=== PATIENT | female | born 1990 | race Caucasian/White ===

== ENCOUNTER 2019-03-29 10:31 | Emergency (ER) | payer SELFPAY ==
--- NOTE | 2019-03-29 11:50 | Emergency Department Record ---
History of Present Illness - General Chief complaint: complication Stated complaint: MISCARRYING,NEEDS RHOGAM Time Seen by Provider: 03/29/19 11:34 Source: Patient Mode of Arrival: Ambulatory Limitations: No limitations - History of Present Illness Initial comments: The patient is here due to presumed miscarriage. She is 10 weeks by da karyn and did see her OB in the OB clinic yesterday but states she was not helped. She has been bleeding for 3 days and then last night she started passing clots with cramping. The clots did stop 4 hours ago and now she is just spotting. The patient has had a miscarriage in the past and believes she is having another. She is RH neg and would like Rhogam. Complaint: Vaginal bleeding Onset/Timin -: Days(s) Location: Pelvis Radiation: None Severity: Mild Severity scale (1-10): 2 Quality: Cramping Consistency: Constant Improves with: None Worsens with: None Associated symptoms: Vaginal bleeding Vaginal bleeding: Light, Clots Number of weeks : 10 Pre-mary ann care: Followed by OB - Related Data : 3 Para: 1 Ab: 2 Home Medications Medication Instructions Recorded Confirmed Last Taken No Home Med [NO HOME MEDS] 03/29/19 03/29/19 Unknown Allergies Allergy/AdvReac Type Severity Reaction Status Date / Time No Known Drug Allergies Allergy Verified 03/29/19 11:34 Review of Systems Constitutional: Denies: Chills, Fever Eyes: Denies: Eye discharge ENT: Denies: Congestion Respiratory: Denies: Cough, Dyspnea Past Medical History - SOCIAL HISTORY Smoking Status: Former smoker - [employer] History : 3 Para: 1 A: 2 - RESPIRATORY Hx Respiratory Disorders: No - CARDIOVASCULAR Hx Cardio Disorders: No - NEURO Hx Neuro Disorders: No - GI Hx GI Disorders: No - Hx Genitourinary Disorders: No - ENDOCRINE Hx Endocrine Disorders: No - MUSCULOSKELETAL Hx Musculoskeletal Disorders: No - PSYCH Hx Psych Problems: No - HEMATOLOGY/ONCOLOGY Hx Hematology/Oncology Disorders: No Family Medical History Any Significant Family History?: No Physical Exam - General General Appearance: Alert, Oriented x3, Cooperative, No acute distress - Head Head exam: Atraumatic, Normocephalic, Normal inspection - Eye Eye exam: Normal appearance, PERRL - Neck Neck exam: Normal inspection, Full ROM. negative: Tenderness - Respiratory Respiratory exam: Normal lung sounds bilaterally. negative: Respiratory distress - Cardiovascular Cardiovascular Exam: Regular rate, Normal rhythm, Normal heart sounds - GI/Abdominal GI/Abdominal exam: Soft, Normal bowel sounds. negative: Distended, Guarding, Rebound, Rigid, Tenderness - exam: Deferred (The patient refused a pelvic exam due to the bleeding basically stopping. ) - Extremities Extremities exam: Normal inspection, Full ROM, Normal capillary refill. negative: Tenderness - Neurological Neurological exam: Alert, Normal gait. negative: Abnormal gait, Motor sensory deficit - Psychiatric Psychiatric exam: negative: Anxious Course Vital Signs 03/29/19 11:16 Temperature 98.4 F Pulse Rate [ 71 Pulse Ox Probe] Respiratory 16 Rate Blood Pressure 123/90 [Left Arm] Pulse Ox 100 - Reevaluation(s) Reevaluation #1: The patient is doing very well at this time. She denies any pain or passing any clots now and states she is only spotting. I did again offer to perform a pelvic exam but she is refusing. I also did recommend follow up in the OB clinic and the patient will comply. I did discuss the case with Carey Zamudio ([employer]) in the OB clinic in [place] and she does agree with the plan. 03/29/19 14:07 Medical Decision Making - Data Complexity MDM Data: Labs Ordered and/or Reviewed, X-Ray Ordered and/or Reviewed - Lab Data Result diagrams: 03/29/19 12:13 03/29/19 12:13 - Radiology Data Radiology results: Report reviewed (Pelvic US: Neg for IUP or pole.) Disposition Disposition: Discharge Clinical Impression: Threatened in early Disposition: Home, Self-Care Condition: (2) Stable Instructions: Threatened Miscarriage (ED) Additional Instructions: Please take Tylenol for pain and practice pelvic rest. Please follow up in the OB clinic next week for recheck an a redraw of the HCG. Return to the ER sooner for any worse bleeding, any pain or fever. Forms: Patient Portal Access Time of Disposition: 14:07 Quality - Quality Measures Quality Measures: (14-50yr) - : US Determination Quality Measure: Measure #254: US Determination of Location ICD10 Codes Entered: Yes View Details: Yes US Determination of Location: < Trans-Abdominal or Trans-Vaginal US Performed > [G8806] - : Rhogam Quality Measure: Measure #255: Rhogam for Rh-Negative Women ICD10 Codes Entered: Yes View Details: Yes Rhogam for Rh-Negative Women at Risk: < Rh-immunoglobulin (Rhogam) Ordered > [G8809] - Blood Pressure Screening View Details: Yes Does Patient Have Any of the Following: No Blood Pressure Classification: Hypertensive Reading Systolic Measurement: 123 Diastolic Measurement: 90 Screening for High Blood Pressure: < First Hypertensive BP, F/U Documented > [G8950] First Hypertensive Follow-up Interventions: Referral to alternative/primary care provider.
[2019-03-29 12:27] LABS: BASO % 0.2 % (0-6); BLOOD UREA NITROGEN 9 mg/dL (6-20); CREATININE 0.7 mg/dL (0.5-0.9); EOS % 0.6 % (0-6); EST GLOMERULAR FILTRATION RATE > 60 mL/min; GRAN % 65.7 % (47-80); HEMATOCRIT 41.5 % (35.0-47.0); HEMOGLOBIN 13.6 gm/dl (11.6-16.0); LYMPH % 28.3 % (16-45); MEAN CELL VOLUME 88.7 fl (81-97); MEAN CORPUSCULAR HEMOGLOBIN 29.1 pg (27-33); MEAN CORPUSCULAR HGB CONC 32.8 g/dl (32-36); MEAN PLATELET VOLUME 11.1 fl (7.4-10.4); MONO % 5.2 % (0-9); PLATELET COUNT 227 K/uL (130-400); RED BLOOD COUNT 4.68 M/uL (3.80-5.40); RED CELL DISTRIBUTION WIDTH 12.5 % (11.5-14.5); WHITE BLOOD COUNT W/O DIFF 8.1 K/uL (4.2-12.2)
[2019-03-29 12:30] LABS: GLUCOSE,RANDOM 85 mg/dL (74-109)
[2019-03-29] MEDS ORDERED: RHO(D) IMMUNE GLOBULIN 1,500 UNIT DISP.SYRIN IM ONE (12:59)
--- NOTE | 2019-03-31 21:41 | ULTRASOUND REPORT ---
EXAM: ULTRASOUND OB PELV W TV - EARLY (4-13wks) HISTORY: SPOTTING FOR THREE DAYS WITH INCREASED BLEEDING TODAY. TECHNIQUE: Transabdominal and transvaginal ultrasound of the uterus. COMPARISON: None. FINDINGS: TRANSABDOMINAL FINDINGS: The uterus is measuring 9.1 x 5.4 x 5.7 cm. The myometrium shows no specific lesion. There is a thick endometrium consistent with a decidual reaction. There is a small fluid collection within the endometrium measuring 9 x 9 x 10 mm that could be a gestational sac. The right ovary is 3.1 x 2.1 x 3.0 cm. Normal appearance. The left ovary is 2.2 x 1.5 x 1.9 cm. Normal appearance. TRANSVAGINAL FINDINGS: The uterus has normal size. There is a thick prominent endometrium. There is a very small oval-shaped fluid collection in the lower uterine segment that measures 6 x 5 x 3 mm. LMP is 01/16/2019. Gestational age by LMP is 10/23/2019. The age by LMP is 10 weeks and 2 days. IMPRESSION: SMALL, POSSIBLE ABNORMAL GESTATIONAL SAC VS. RETAINED PRODUCT OF CONCEPTION WITHIN THE ENDOMETRIAL CANAL, LOWER UTERINE SEGMENT. A POLE AND YOLK SAC ARE NOT VISIBLE. DIFFERENTIAL DIAGNOSIS INCLUDES SPONTANEOUS IN PROGRESS VS. ECTOPIC VS. VERY EARLY INTRAUTERINE . CORRELATION WITH LABORATORY FINDINGS AND PHYSICAL EXAM IS RECOMMENDED. JOB NUMBER: [id number] [facility]
== END 2019-03-29 14:15 | disposition home or self-care (01) ==
LOC: ER 10:31
DX: O20.0 Threatened abortion (principal); O36.0910 Maternal care for other rhesus isoimmunization, first trimester, not applicable or unspecified; Z3A.10 10 weeks gestation of pregnancy
CPT/HCPCS: 76801; 76817; 80048; 84702; 85025; 86901; 96372; 99284